=== PATIENT | female | born 1990 | race Caucasian/White ===

== ENCOUNTER 2016-08-05 12:03 | Emergency (ER) | payer BC ==
--- NOTE | ~2016-08-05 | US67 ---
[facility] A Service of [facility] & [facility] RADIOLOGY TEXT RESULTS PATIENT: JOHANNE WOLF LOCATION: [facility] : 89 UNIT #: [id number] AGE: [address]: Berlin Hernandez MD SEX: F ORDER DR: [id number] [facility] [address] [place], [place] [address] [id number] E MR#: [id number] Acc #: [id number] NAME: JOHANNE WOLF : 1990 SEX: F STUDY DATE/TIME: 08/05/2016 15:27 UNIT: [facility] ROOM: STUDY DESCRIPTION: Gallbladder Attending Physician: Berlin Hernandez M.D. Ordering Physician: Pj Mak M.D. Primary Care Physician: No Primary Care Physician MEDICAL IMAGING REPORT This report is preliminary unless electronic signature is present EXAM Gallbladder sonogram. CLINICAL HISTORY Pain and nausea since this morning. Pain radiating over abdomen. FINDINGS Real-time examination demonstrates the liver to be of normal size, shape and echogenicity. The right kidney appears normal. Multiple mobile gallstones with posterior shadowing. No gallbladder wall thickening or pericholecystic fluid. No intra or extrahepatic ductal dilatation is identified. The common duct measures 4 mm. No free fluid. IMPRESSION Uncomplicated cholelithiasis, otherwise, normal right upper quadrant sonogram. Dictated by... Liz Huertas M.D. THIS IS AN ELECTRONICALLY VERIFIED REPORT Liz Huertas M.D. at 08/05/2016 9:10 PM Ken TD: 08/05/2016 17:48 JOB #: [id number] MEDICAL IMAGING REPORT Page 1 of 1 COPY
[~2016-08-05 12:03] MED LIST: ERYTHROMYCIN O3.5 GM OD; IBUPROFEN600 MG PO; MIRALAX17 G1 PO; PEPCID PO; PREDNISONE5 MG PO; ZYRTEC PO
[2016-08-05 13:15] LABS: URINE SOURCE CLEAN CATCH
[2016-08-05 13:23] LABS: URINE APPEARANCE CLEAR; URINE BILIRUBIN NEG (NEG); URINE BLOOD TRACE (NEG); URINE COLOR YELLOW; URINE GLUCOSE NEG (NEG); URINE KETONE 2+ (NEG); URINE LEUKOCYTE ESTERASE NEG (NEG); URINE NITRATE NEG (NEG); URINE PH 7.5 (5-8); URINE PROTEIN TRACE (NEG); URINE SPECIFIC GRAVITY 1.031 (1.003-1.035)
[2016-08-05 13:33] LABS: CULTURE INDICATED? NO
[2016-08-05 13:37] LABS: BASOPHIL% 0.2 % (0-2.5); EOSINOPHIL% 0.1 % (0.0-7.0); HEMATOCRIT 39.2 % (35.0-45.0); HEMOGLOBIN 12.5 gm/dL (12.0-16.0); LYMPHOCYTE# 0.7 X10e3 (1.0-3.5); MEAN CELL VOLUME 79.9 FL (83-96); MEAN CORPUSCULAR HEMOGLOBIN 25.5 PG (28-34); MEAN CORPUSCULAR HGB CONC 31.9 g/dL (30-36); MEAN PLATELET VOLUME 10.5 FL (6.5-11.5); MONOCYTE# 0.4 X10e3 (0-1.0); MONOCYTE% 2.6 % (3.0-12.0); NEUTROPHIL# 13.1 X10e3 (1.5-7.1); NEUTROPHIL% 92.1 % (40-75); PLATELET COUNT 178 X10e3 (140-420); RED BLOOD COUNT 4.91 X10e (3.90-5.30); RED CELL DISTRIBUTION WIDTH 15.7 % (11.0-15.5); WHITE BLOOD COUNT 14.2 X10e3 (4.0-10.5)
[2016-08-05 13:40] LABS: DIFF IND NO
[2016-08-05 14:04] LABS: ALBUMIN SERUM 4.3 g/dL (3.5-5.0); BILIRUBIN, DIRECT 0.1 mg/dL (0.0-0.2); BILIRUBIN,INDIRECT 0.2 mg/dL (0.0-0.9); BILIRUBIN,TOTAL 0.3 mg/dL (0.2-2.0); CALCIUM SERUM 8.9 mg/dL (8.4-10.2); CREATININE SERUM 0.7 mg/dL (0.6-1.4); GLOM FILT RATE Estimated 120.4 mL/min (>60)
== END 2016-08-05 16:44 | disposition home or self-care (01) ==
LOC: CED 12:03
PROVIDERS: Emergency Medicine
DX: K80.80 Other cholelithiasis without obstruction (principal); F31.9 Bipolar disorder, unspecified; Z88.1 Allergy status to other antibiotic agents; Z98.890 Other specified postprocedural states
CPT/HCPCS: 36415; 76705; 80048; 80076; 81003; 82150; 83690; 84703; 85025; 96361; 96374; 96375; 99284; C9113; J1170; J2405